=== PATIENT | male | born 1940 | race Caucasian/White ===

== ENCOUNTER 2020-08-31 07:34 | Outpatient (CLI) | payer MEDICARE, BC | END 2020-08-31 07:35 | disposition home or self-care (01) | LOC: CSHCT 07:34 | PROVIDERS: ATTEND Otolaryngology Plastic Surgery within the Head & Neck | DX: R22.0 Localized swelling, mass and lump, head (principal); L98.9 Disorder of the skin and subcutaneous tissue, unspecified; D49.2 Neoplasm of unspecified behavior of bone, soft tissue, and skin | CPT/HCPCS: 70491; 82565 ==

== ENCOUNTER 2020-09-29 09:23 | Outpatient (CLI) | payer MEDICARE, BC ==
[2020-09-29 12:26] LABS: Hemoglobin 13.9 g/dL (13.5-17.5)
[2020-09-29 12:52] LABS: Anion Gap 17 mmol/L (10-20); BUN (Urea Nitrogen) 21 mg/dL (8.4-25.7); Calc. Creatinine Clearance 0 mL/min (70-130); Calcium 9.1 mg/dL (7.8-10.44); Carbon Dioxide 19 mmol/L (23-31); Chloride 110 mmol/L (98-107); Glucose 97 mg/dL (83-110); Potassium 4.9 mmol/L (3.5-5.1); Sodium 141 mmol/L (136-145)
[2020-09-29 20:11] LABS: SARS-CoV-2 PCR by NAA Not Detected (NotDetected)
== END 2020-09-29 09:24 | disposition home or self-care (01) ==
LOC: CSHLAB 09:23
PROVIDERS: ATTEND Otolaryngology Plastic Surgery within the Head & Neck
DX: Z01.818 Encounter for other preprocedural examination (principal); Z20.822 Contact with and (suspected) exposure to COVID-19; D11.0 Benign neoplasm of parotid gland; C44.202 Unspecified malignant neoplasm of skin of right ear and external auricular canal
CPT/HCPCS: 80048; 85014; 85018; 87635; 93005; 93010; U0003; U0005

== ENCOUNTER 2020-10-02 08:57 | Inpatient (IN) | payer MEDICARE, BC ==
[2020-10-02] MEDS ORDERED: Acetaminophen 325 MG TAB PO PRN (09:52)
[2020-10-02] MEDS ORDERED: Ondansetron PF 4 MG/2 ML Vial IVP PRN (09:52)
[2020-10-02] MEDS ORDERED: Morphine 4 MG/ML VIAL SLOW IVP PRN (09:59)
[2020-10-02] MEDS ORDERED: Lidocaine 1% MPF 2 ML VIAL ONE (10:34)
[2020-10-02] MEDS ORDERED: Lidocaine 1% w/Epinephrine 1:100K 20 ML VIAL ONE (11:28)
[2020-10-02] MEDS ORDERED: Midazolam HCl 2 mg/2 ml Vial ONE (11:36)
[2020-10-02] MEDS ORDERED: PROPOFOL 20 ML ONE ×2 (11:36→12:21)
[2020-10-02] MEDS ORDERED: Fentanyl 250 MCG/5 ML VIAL ONE (11:36)
[2020-10-02] MEDS ORDERED: Dexamethasone 4 mg/ml Vial ONE (11:37)
[2020-10-02] MEDS ORDERED: Rocuronium Bromide 10 MG/ML (10ML VIAL) ONE (11:37)
[2020-10-02] MEDS ORDERED: Lidocaine 1% PF 5 ML VIAL ONE (11:37)
[2020-10-02] MEDS ORDERED: Ondansetron PF 4 MG/2 ML Vial ONE (11:37)
[2020-10-02] MEDS ORDERED: ePHEDrine 50 MG/ML VIAL ONE (12:03)
[2020-10-02] MEDS ORDERED: Fentanyl 100 MCG/2 ML VIAL ONE ×2 (13:04→14:38)
[2020-10-02] MEDS ORDERED: Triple Antibiotic Oint 1 GM Packet ONE ×2 (15:17→15:26)
[2020-10-02] MEDS ORDERED: Bacitracin 1 PK ONE ×2 (15:28)
[2020-10-02] MEDS: D5 1/2 NS 1,000 ML IV SCH (16:09)
[2020-10-02] MEDS: Rosuvastatin 10 MG TAB PO SCH (20:10)
[2020-10-02] MEDS: HYDROcodone/Acetaminophen 5/325 mg Tablet PO PRN (20:10)
[2020-10-02] MEDS: CEFAZOLIN 1 GM in Sodium Chloride 0.9% 100 ML IVPB SCH (20:10)
[2020-10-02 23:10] LABS: Anion Gap 16 mmol/L (10-20); BUN (Urea Nitrogen) 13 mg/dL (8.4-25.7); Calc. Creatinine Clearance 83 mL/min (70-130); Calcium 9.1 mg/dL (7.8-10.44); Carbon Dioxide 23 mmol/L (23-31); Chloride 103 mmol/L (98-107); Glucose 188 mg/dL (83-110); Potassium 3.5 mmol/L (3.5-5.1); Sodium 138 mmol/L (136-145)
[2020-10-03] MEDS: HYDROcodone/Acetaminophen 5/325 mg Tablet PO PRN (00:46)
[2020-10-03 05:01] LABS: #Monocytes 1.1 10x3/uL (0.0-1.1); #Neutrophils 10.1 10x3/uL (1.5-8.4); %Basophils 0.2 % (0.0-2.0); %Lymphocytes 4.1 % (18.0-47.0); %Monocytes 9.6 % (0.0-10.0); %Neutrophils 85.5 % (40.0-75.0); Hemoglobin 12.7 g/dL (13.5-17.5); Mean Platelet Volume 10.2 fl (7.4-10.4); Platelet Count 206 10x3/uL (150-450); RBC Distribution Width 13.2 % (11.5-14.5); Red Blood Cell (RBC) Count 3.97 10x6/uL (4.32-5.72); White Blood Cell (WBC) Count 11.8 10x3/uL (3.5-10.5)
[2020-10-03 05:11] LABS: ALT (SGPT) 16 U/L (8-55); AST (SGOT) 21 U/L (5-34); Albumin 3.7 g/dL (3.4-4.8); Alkaline Phosphatase 71 U/L (40-110); Anion Gap 13 mmol/L (10-20); BUN (Urea Nitrogen) 12 mg/dL (8.4-25.7); Bilirubin, Total 0.5 mg/dL (0.2-1.2); Calc. Creatinine Clearance 94 mL/min (70-130); Carbon Dioxide 22 mmol/L (23-31); Chloride 106 mmol/L (98-107); Globulin 2.6 g/dL (2.4-3.5); Glucose 175 mg/dL (83-110); Potassium 3.9 mmol/L (3.5-5.1); Protein, Total 6.3 g/dL (5.8-8.1); Sodium 137 mmol/L (136-145)
[2020-10-03] MEDS ORDERED: [UNRECOGNIZED DRUG - OTHER] PO SCH (09:00)
[2020-10-03] MEDS ORDERED: (Lutein [Lutein] 20 MG Capsule) PO SCH (09:00)
[2020-10-03] MEDS ORDERED: RESVERATROL 250 MG PO SCH (09:00)
[2020-10-03] MEDS: Dutasteride 0.5 MG CAP PO SCH (11:36)
[2020-10-03] MEDS: CEFAZOLIN 1 GM in Sodium Chloride 0.9% 100 ML IVPB SCH ×3 (11:44→20:22)
[2020-10-03 15:23] VITALS: BMI 28.9
[2020-10-03] MEDS: D5 1/2 NS 1,000 ML IV SCH (19:10)
[2020-10-03] MEDS: Rosuvastatin 10 MG TAB PO SCH (20:22)
[2020-10-04] MEDS: D5 1/2 NS 1,000 ML IV SCH ×2 (01:30→15:59)
[2020-10-04] MEDS: HYDROcodone/Acetaminophen 5/325 mg Tablet PO PRN ×3 (01:47→11:41)
[2020-10-04] MEDS: CEFAZOLIN 1 GM in Sodium Chloride 0.9% 100 ML IVPB SCH ×2 (03:02→13:07)
[2020-10-04] MEDS: Dutasteride 0.5 MG CAP PO SCH (09:40)
[2020-10-04 16:27] VITALS: BP 134/72; TEMP 96.5
[2020-10-05] MEDS ORDERED: Cholecalciferol 1,000 UNITS (25 MCG) TAB PO SCH (09:00)
[2020-10-05] MEDS ORDERED: CURCUMIN PO SCH (09:00)
[2020-10-05] MEDS ORDERED: [UNRECOGNIZED DRUG - OTHER] PO SCH (09:00)
[2020-10-05] MEDS ORDERED: Fish Oil 1,000 MG CAP PO SCH (09:00)
== END 2020-10-04 18:32 | disposition home or self-care (01) | DRG 578 ==
LOC: CSHSDC 08:57 → CSHIMCU 15:39 → CSHTELE 10-03 17:48
PROVIDERS: ADMIT Otolaryngology Plastic Surgery within the Head & Neck; ATTEND Otolaryngology Plastic Surgery within the Head & Neck
PROC: 0CT80ZZ Resection of Right Parotid Gland, Open Approach (ICD-10-PCS; principal; 2020-10-02)
PROC: 0HX1XZZ Transfer Face Skin, External Approach (ICD-10-PCS; 2020-10-02)
PROC: 07B10ZZ Excision of Right Neck Lymphatic, Open Approach (ICD-10-PCS; 2020-10-02)
DX: C44.329 Squamous cell carcinoma of skin of other parts of face (principal); D11.0 Benign neoplasm of parotid gland; Z85.46 Personal history of malignant neoplasm of prostate; Z90.89 Acquired absence of other organs; Z96.642 Presence of left artificial hip joint; M85.80 Other specified disorders of bone density and structure, unspecified site
CPT/HCPCS: 36415; 80048; 80053; 85025; 88305; 88307; 88309; 88331; 94760; J0690; J1100; J2250; J2405; J2704; J3010; J3490